=== PATIENT | male | born 1965 | race Caucasian/White ===

== ENCOUNTER 2016-12-09 08:38 | Emergency (ER) | payer SELFPAY ==
[~2016-12-09] VITALS: Ht 170.2 cm; Wt 98.6 kg
[2016-12-09 08:46] VITALS: BP 176/127
--- NOTE | 2016-12-09 08:52 | NUR ---
PATIENT AMBULATED TO ER BED 7.
--- NOTE | 2016-12-09 08:57 | NUR ---
PATIENT PRESENTS TO ED WITH C/O DYSURIA, HESITANCY, BURNING PAIN; STARTED ONLY DRIBBLING LAST NIGH;SUPRAPUBIC PAIN;HX OF HTN, BPH;RX OF TAMSULOSIN 0.4MG, LISINOPRIL 10MG .DENIES N/V/D; SKIN IS PINK/WARM/DRY; AAOX4 WITH EVEN AND STEADY GAIT; LUNGS CLEAR BL; HR EVEN AND REGULAR; PT DENIES ANY FEVER, CP, SOB, OR COUGH AT THIS TIME; PATIENT STATES PAIN OF 10/10 AT THIS TIME; VSS; PATIENT POSITIONED FOR COMFORT; HOB ELEVATED; BEDRAILS UP X2; BED DOWN. ER MD WILL BE NOTIFIED;
--- NOTE | 2016-12-09 09:07 | NUR ---
PATIENT BEING EVALUATED BY DR. FRANCOIS.
[2016-12-09] MEDS ORDERED: fentaNYL 0.05 MG/ML VIAL IM ONE (09:10)
[2016-12-09 09:37] LABS: APPEARANCE,URINE HAZY (CLEAR); BILIRUBIN,URINE NEGATIVE (NEGATIVE); BLOOD, URINE 3+ (NEGATIVE); LEUKOCYTE ESTERASE ,URINE NEGATIVE (NEGATIVE); NITRITE, URINE NEGATIVE (NEGATIVE); PROTEIN,URINE TRACE (NEGATIVE); UGLUCOSE NEGATIVE (NEGATIVE); UROBILINOGEN,URINE 0.2 EU/dL (0.2 - 1)
--- NOTE | 2016-12-09 09:47 | NUR ---
PT SLEEPING AT THIS TIME;NO ACUTE DISTRESS NOTED;ALL MONITOPRS IN PLACED;WILL CONTINUE TO MONITOR PT.
[2016-12-09 09:50] LABS: COLOR,URINE ORANGE (YELLOW)
[2016-12-09 09:52] LABS: BACTERIA,URINE 0-2 (RARE) /HPF (None Seen); RBC,URINE 50-70 /HPF (0-5); SQUAMOUS EPITHELIAL CELL,UR 0-3 (FEW) /LPF (0-3 (FEW)); WBC,URINE 0-5 (RARE) /HPF (0-5)
--- NOTE | 2016-12-09 10:09 | NUR ---
DR FRANCOIS AT BEDSIDE.
--- NOTE | 2016-12-09 10:20 | NUR ---
PT WILL BE DISCHARGED W/ FERNANDES CATHETER;PT WAS ADVISED BY ER MD TO FOLLOW UP ON SUNDAY HERE IN ER FOR FERNANDES REMOVAL;EDUCATION ON HOW TO CARE AND DRAIN URINARY BAG WAS GIVEN;PT DEMONSTRATED UNDERSTANDING;
--- NOTE | 2016-12-09 10:27 | NUR ---
Patient discharged with v/s stable. Written and verbal after care instructions given and explained. Patient alert, oriented and verbalized understanding of instructions. Ambulatory with steady gait. All questions addressed prior to discharge. ID band removed. Patient advised to follow up with PMD. Rx of MACROBID AND PYRDIUM given. Patient educated on indication of medication including possible reaction and side effects. Opportunity to ask questions provided and answered.
[2016-12-09 10:28] VITALS: BP 162/113
== END 2016-12-09 10:27 | disposition home or self-care (01) ==
LOC: MED 09:03
DX: R32 Unspecified urinary incontinence (principal); I10 Essential (primary) hypertension
CPT/HCPCS: 51702; 81001; 96372; 99284; J3010

== ENCOUNTER 2016-12-10 13:15 | Emergency (ER) | payer SELFPAY ==
[~2016-12-10] VITALS: Ht 170.2 cm; Wt 97.3 kg
[2016-12-10 13:23] VITALS: BP 196/124
--- NOTE | 2016-12-10 13:30 | NUR ---
Patient ambulated to bed 07.
--- NOTE | 2016-12-10 13:48 | NUR ---
PATIENT PRESENTS TO ED WITH c/o burning pain to meatus and suprapubic pain s/p enciso insertion yesterday;coke color urine noted to collecting bag;no flank pain . DENIES N/V/D; SKIN IS PINK/WARM/DRY; AAOX4 WITH EVEN AND STEADY GAIT; LUNGS CLEAR BL; HR EVEN AND REGULAR; PT DENIES ANY FEVER, CP, SOB, OR COUGH AT THIS TIME; PATIENT STATES PAIN OF 10/10 AT THIS TIME;PATIENT POSITIONED FOR COMFORT; HOB ELEVATED; BEDRAILS UP X2; BED DOWN.ALL MONITORS IN PLACED; ER MD MADE AWARE OF PT STATUS.
[2016-12-10 13:57] LABS: APPEARANCE,URINE CLOUDY (CLEAR); BILIRUBIN,URINE 2+ (NEGATIVE); BLOOD, URINE 3+ (NEGATIVE); COLOR,URINE BROWN (YELLOW); LEUKOCYTE ESTERASE ,URINE TRACE (NEGATIVE); NITRITE, URINE POSITIVE (NEGATIVE); PH,URINE 6.5 (5.0-9.0); PROTEIN,URINE 3+ (NEGATIVE); UGLUCOSE 1+ (NEGATIVE)
[2016-12-10 14:03] LABS: ICTOTEST POSITIVE (NEGATIVE)
[2016-12-10 14:04] LABS: BACTERIA,URINE 2+ /HPF (None Seen); RBC,URINE TOO NUMEROUS TO COUN /HPF (0-5); SQUAMOUS EPITHELIAL CELL,UR 0-3 (FEW) /LPF (0-3 (FEW)); WBC,URINE 6-15 (FEW) /HPF (0-5)
[2016-12-10] MEDS ORDERED: LEVOFLOXACIN 500 MG TAB PO ONE (14:10)
[2016-12-10] MEDS ORDERED: LORazepam 2 MG/ML VIAL IM ONE (14:20)
[2016-12-10] MEDS ORDERED: IBUPROFEN 800 MG TAB PO ONE (14:20)
--- NOTE | 2016-12-10 14:25 | NUR ---
FLUSHED FERNANDES CATHETER W/ 60 CC OF DISTILLED WATER;ONLY 10 ML RETURNED;TIP OF CATHETER WAS CLOGGED;REMOVED FERNANDES CATHETER TO SEE IF PT CAN VOID BY ITSELF;PT WAS UNABLE TO URINATE BY HIMSELF;PUT ANOTHER FERNANDES CATHETER 16;DRAINED 1200 ML;FERNANDES CATH WASS CLAMPED;WILL DRAIN AGIN LATER;NO ACUTE DISTRESS NOTED;ALL MONITORS IN PLACED;WILL CONTINUE TO MONITOR PT.
--- NOTE | 2016-12-10 15:00 | NUR ---
Dr Patton at bedside.
[2016-12-10 15:39] VITALS: BP 148/124
--- NOTE | 2016-12-10 15:39 | NUR ---
Patient discharged with v/s stable. Written and verbal after care instructions given and explained. Patient alert, oriented and verbalized understanding of instructions. Ambulatory with steady gait. All questions addressed prior to discharge. ID band removed. Patient advised to follow up with PMD. Rx of CIPRO AND MOTRIN given. Patient educated on indication of medication including possible reaction and side effects. Opportunity to ask questions provided and answered.
== END 2016-12-10 15:39 | disposition home or self-care (01) ==
LOC: MED 13:15
DX: N40.1 Benign prostatic hyperplasia with lower urinary tract symptoms (principal); R33.9 Retention of urine, unspecified; I10 Essential (primary) hypertension
CPT/HCPCS: 81001; 87086; 96372; 99284; J2060

== ENCOUNTER 2016-12-16 03:44 | Emergency (ER) | payer OTHER ==
[~2016-12-16] VITALS: Ht 170.2 cm; Wt 97.1 kg
[2016-12-16 03:48] VITALS: BP 152/90
--- NOTE | 2016-12-16 03:56 | NUR ---
TO ER BED 7
--- NOTE | 2016-12-16 04:32 | NUR ---
Patient being evaluated by physician at bedside.
--- NOTE | 2016-12-16 04:32 | NUR ---
51Y/M PATIENT PRESENTS TO ED WITH F/C LEAKAGED . PT STATES F/C INSERTED YESTERDAY BY UROLOGIST, TODAY LEAKAGED; SKIN IS PINK/WARM/DRY; AAOX4 WITH EVEN AND STEADY GAIT; LUNGS CLEAR BL; HR EVEN AND REGULAR; PT DENIES ANY FEVER, CP, SOB, OR COUGH AT THIS TIME; PATIENT STATES PAIN OF 0/10 AT THIS TIME; VSS; PATIENT POSITIONED FOR COMFORT; HOB ELEVATED; BEDRAILS UP X2; BED DOWN. ER MD MADE AWARE OF PT STATUS.
--- NOTE | 2016-12-16 04:36 | NUR ---
Patient being evaluated by physician at bedside.
--- NOTE | 2016-12-16 04:45 | NUR ---
SCAN BLADDER 194 ML RESIDUAL URINE. FLUSH WITH NSS 50 ML, BLOODY URINE OUT PUT 200 ML. PT. TOLERATED WELL.
[2016-12-16 05:08] VITALS: BP 152/90
--- NOTE | 2016-12-16 05:08 | NUR ---
Patient discharged with v/s stable. Written and verbal after care instructions given and explained. Patient verbalized understanding. Ambulatory with steady gait. All questions addressed prior to discharge. Advised to follow up with PMD.
== END 2016-12-16 05:08 | disposition home or self-care (01) ==
LOC: MED 03:48
DX: T83.098A Other mechanical complication of other urinary catheter, initial encounter (principal); R33.9 Retention of urine, unspecified; I10 Essential (primary) hypertension
CPT/HCPCS: 99283

== ENCOUNTER 2018-09-25 15:01 | Emergency (ER) | payer OTHER ==
[~2018-09-25] VITALS: Ht 167.6 cm; Wt 91.2 kg
[2018-09-25 15:06] VITALS: BP 142/93
--- NOTE | 2018-09-25 15:11 | NUR ---
PT AMBULATED TO ED BED 2
--- NOTE | 2018-09-25 15:15 | NUR ---
PT BPH, S/P FERNANDES INSERTION ON SUNDAY. TODAY URINE LEAKING. WAS SEEN BY PMD YESTERDAY, UROLOGIST CALLED, UNABLE TO MAKE SCHEDULE TODAY. DENIES N/V/D; SKIN IS PINK/WARM/DRY; AAOX4 WITH EVEN AND STEADY GAIT; PT DENIES ANY FEVER, CP, SOB, OR COUGH AT THIS TIME; PATIENT STATES PAIN OF 0/10 AT THIS TIME; VSS; PATIENT POSITIONED FOR COMFORT; HOB ELEVATED; BEDRAILS UP X1; BED DOWN. ER MD MADE AWARE OF PT STATUS.
--- NOTE | 2018-09-25 15:25 | NUR ---
Pt's urinary catheter has been removed according to MD Santos.
--- NOTE | 2018-09-25 15:30 | NUR ---
Pt is able to pee.
[2018-09-25 16:49] VITALS: BP 156/92
== END 2018-09-25 16:49 | disposition home or self-care (01) ==
LOC: MED 15:01 → CANBEDREQ 15:06 → MED 16:49
DX: T83.031A Leakage of indwelling urethral catheter, initial encounter (principal); N40.0 Benign prostatic hyperplasia without lower urinary tract symptoms; I10 Essential (primary) hypertension; Y84.6 Urinary catheterization as the cause of abnormal reaction of the patient, or of later complication, without mention of misadventure at the time of the procedure
CPT/HCPCS: 81002; 99284

== ENCOUNTER 2018-10-19 00:39 | Emergency (ER) | payer OTHER ==
[~2018-10-19] VITALS: Ht 168.9 cm; Wt 93.0 kg
[2018-10-19 00:47] VITALS: BP 163/108
--- NOTE | 2018-10-19 01:10 | NUR ---
PT AMBULATED TO ER BED 11
--- NOTE | 2018-10-19 01:30 | NUR ---
53 YO M BIB SELF AND PRESENTS TO ED C/O URINARY RETENTION X 4 HOURS. PT STATES HE HAS HAD THIS ISSUE IN THE PAST AND KNOWS WHAT IT FEELS LIKE. FOLLOWS UP WITH UROLOGY. PT REPORTS 9/10 PRESSURE TO BLADDER WITH MODERATE BLADDER DISTENTION NOTED. -- PT AWAKE, A/O X 4, CALM, COOPERATIVE. ANSWERING QUESTIONS APPROPRIATELY. BEHAVIOR AGE APPROPROATE. -- SKIN WARM, DRY, PINK. BREATHING EVEN, UNLABORED. PMH-- PROSTATE ENLARGEMENT, HTN
--- NOTE | 2018-10-19 01:40 | NUR ---
ATTEMPTED FERNANDES CATHETER INSERTION WITH 14 FR COUDE CATHETER. CATHETER WOULD NOT ADVANCE PASSED THE URETHRAL OPENING. DR. ROSS NOTIFIED. AWAITING NEW ORDERS.
[2018-10-19] MEDS ORDERED: LIDOCAINE JELLY 2% 30 ML TUBE TP ONE (02:05)
--- NOTE | 2018-10-19 02:11 | NUR ---
INJECTED 5ML LIDOCAINE 2% JELLY INTO URETHRA FOR FERNANDES CATHETER INSERTION PER DR. ROSS.
--- NOTE | 2018-10-19 02:30 | NUR ---
# 16 FR Crawley catheter with 10 ml utilizing sterile technique. Immediate return of 1200 ml pale yellow, clear urine noted. Bedside drainage bag placed below level of bladder. Urine sample collected and sent to lab. Pt tolerated procedure well.
--- NOTE | 2018-10-19 03:12 | NUR ---
URINE SAMPLE SENT TO LAB.
[2018-10-19 03:23] LABS: APPEARANCE,URINE CLEAR (CLEAR); BILIRUBIN,URINE NEGATIVE (NEGATIVE); BLOOD, URINE 3+ (NEGATIVE); COLOR,URINE YELLOW (YELLOW); LEUKOCYTE ESTERASE ,URINE NEGATIVE (NEGATIVE); NITRITE, URINE NEGATIVE (NEGATIVE); PH,URINE 5.5 (5.0-9.0); UGLUCOSE NEGATIVE (NEGATIVE)
[2018-10-19 03:30] LABS: WBC,URINE 0-5 /HPF (0-5)
--- NOTE | 2018-10-19 04:15 | NUR ---
SWITCHED OUT FERNANDES DRAINAGE BAG TO LEG BAG. TEACHING AND REINFORCEMENT PROVIDED. PT STATES HE HAS HAD ONE IN THE PAST. NO QUESTIONS AT THIS TIME.
[2018-10-19 04:27] VITALS: BP 134/87
--- NOTE | 2018-10-19 04:27 | NUR ---
Patient discharged with v/s stable. Written and verbal after care instructions given and explained. Patient alert, oriented and verbalized understanding of instructions. Ambulatory with steady gait. All questions addressed prior to discharge. ID band removed. Patient advised to follow up with PMD. Rx of Pyridium given. Patient educated on indication of medication including possible reaction and side effects. Opportunity to ask questions provided and answered.
== END 2018-10-19 04:27 | disposition home or self-care (01) ==
LOC: MED 00:39
DX: R33.9 Retention of urine, unspecified (principal); N40.0 Benign prostatic hyperplasia without lower urinary tract symptoms; I10 Essential (primary) hypertension
CPT/HCPCS: 51702; 81001; 99284

== ENCOUNTER 2018-10-20 17:48 | Emergency (ER) | payer OTHER ==
[~2018-10-20] VITALS: Ht 167.6 cm; Wt 89.5 kg
[2018-10-20 17:58] VITALS: BP 143/103
--- NOTE | 2018-10-20 18:01 | NUR ---
PT RETURNED TO LOBBY IN STABLE CONDITION
--- NOTE | 2018-10-20 18:11 | NUR ---
Patient ambulated to bed 5
--- NOTE | 2018-10-20 18:34 | NUR ---
PT BIB C/O FERNANDES CATHETER. PT REPORTS FERNANDES WAS INSERTED FATUMA NIGHT AND WANTS TO HAVE IT REMOVED. PT HAS APPOINTMENT WITH UROLOGIST FOR SURGERY
--- NOTE | 2018-10-20 19:05 | NUR ---
REPORT TAKEN FROM GERARD HERNANDEZ. PT STATES NO PAIN OR NEEDS AT THIS TIME. VSS. AT BEDSIDE. CONTINUE TO MONITOR.
--- NOTE | 2018-10-20 20:01 | NUR ---
FERNANDES CATH REMOVED WITH NO COMPLICATION, PT TOLERATED WELL.
[2018-10-20 20:48] VITALS: BP 140/88
--- NOTE | 2018-10-20 20:48 | NUR ---
PT DISCHARGED BY DR GRAY. DR GRAY INSTRUCED PT TO F/U WITH PCP AND WHEN TO RETURN TO ER. PT VERBALLIZED UNDERSTANDING OF DC INSTRUCTIONS. ALL QUESTIONS ANSWERED.
== END 2018-10-20 20:48 | disposition home or self-care (01) ==
LOC: MED 17:48
DX: R33.9 Retention of urine, unspecified (principal); I10 Essential (primary) hypertension; Z46.6 Encounter for fitting and adjustment of urinary device
CPT/HCPCS: 99283